=== PATIENT | male | born 1940 | race African-American/Black ===

== ENCOUNTER 2024-04-25 20:21 | Inpatient (IN) | payer OTHER ==
[~2024-04-25] VITALS: Ht 180.3 cm; Wt 84.4 kg
[2024-04-25] MEDS: PIPERACILLIN/TAZO 3.375G/50ML 50 ML IV ONE (22:22)
[2024-04-25] MEDS: FUROSEMIDE 40MG/4ML VIAL IV ONE (22:22)
[2024-04-25] MEDS: ASPIRIN 81MG TABLET PO ONE (22:22)
[2024-04-25] MEDS: VANCOMYCIN 1G PREMIX 200 ML IV ONE (23:09)
[2024-04-26 01:26] LABS: HEMATOCRIT. 33.6 % (42.0-52.0); HEMOGLOBIN. 10.4 g/dL (14.0-18.0); MEAN CORPUSCULAR HEMOGLOBIN 26.6 pg (28.0-32.0); MEAN CORPUSCULAR HGB CONC 30.8 g/dL (31.0-37.0); MEAN CORPUSCULAR VOLUME 86.6 fL (80.0-94.0); MEAN PLATELET VOLUME 10.8 fl (7.4-10.4); PLATELET 146 x1000/uL (130-400); RED BLOOD CELL COUNT 3.89 mill/uL (4.7-6.1); RED CELL DISTRIBUTION WIDTH 17.2 % (11.6-14.6); WHITE BLOOD COUNT 30.3 x1000/uL (4.5-11.0)
[2024-04-26 01:27] LABS: DIFFERENTIAL COMMENT 1
[2024-04-26 01:31] LABS: CHLORIDE 104 mEq/L (98-107); POTASSIUM 4.8 mEq/L (3.5-5.1); SODIUM 138 mEq/L (136-145)
[2024-04-26 01:32] LABS: CALCIUM 9.3 mg/dL (8.7-10.4); CARBON DIOXIDE 25 mEq/L (21-32)
[2024-04-26 01:37] LABS: CREATININE 3.7 mg/dL (0.6-1.3); GLUCOSE 154 mg/dL (70-105); UREA NITROGEN BLOOD 42 mg/dL (9-23)
[2024-04-26 01:39] LABS: ALANINE AMINOTRANSFERASE 27 IU/L (10-49); ALBUMIN 3.9 g/dL (3.2-4.8); ASPARTATE AMINOTRANSFERASE 14 IU/L (<34); BILIRUBIN DIRECT 0.2 mg/dL (<=3.0); BILIRUBIN TOTAL 0.6 mg/dL (0.1-1.0); PROTEIN TOTAL 6.3 g/dL (6.0-8.3)
[2024-04-26 01:51] LABS: PLATELET ESTIMATE NORMAL
[2024-04-26 02:03] LABS: INR 1.1; PARTIAL THROMBOPLASTIN TIME 29.1 sec (23.4-31.0); PROTHROMBIN TIME 11.9 sec (9.6-11.0)
[2024-04-26 02:13] LABS: TROPONIN I HIGH SENSITIVITY 123 ng/L (3.0-53)
[2024-04-26] MEDS: IPRATROPIUM/ALBUTEROL 0.5-3(2.5)MG/3ML NEB HHN SCH (02:45)
[2024-04-26] MEDS ORDERED: DOCUSATE SODIUM 100MG CAPSULE PO PRN (05:45)
[2024-04-26] MEDS ORDERED: IPRATROPIUM/ALBUTEROL 0.5-3(2.5)MG/3ML NEB HHN PRN (05:45)
[2024-04-26] MEDS ORDERED: HYDRALAZINE 20MG/ML VIAL IV PRN (05:45)
[2024-04-26] MEDS ORDERED: FUROSEMIDE 20MG/2ML VIAL IVP SCH (05:45)
[2024-04-26] MEDS ORDERED: GUAIFENESIN 200MG/10ML SUGAR FREE UDC PO PRN (05:45)
[2024-04-26] MEDS ORDERED: ACETAMINOPHEN 325MG TABLET PO PRN ×2 (05:45)
[2024-04-26] MEDS ORDERED: ONDANSETRON HCL 4MG/2ML INJ IV PRN (05:45)
[2024-04-26] MEDS: CEFTRIAXONE 1GM/50ML 50 ML IV SCH (06:47)
[2024-04-26 08:38] LABS: HEMATOCRIT. 33.3 % (42.0-52.0); HEMOGLOBIN. 10.3 g/dL (14.0-18.0); MEAN CORPUSCULAR HEMOGLOBIN 26.6 pg (28.0-32.0); MEAN CORPUSCULAR HGB CONC 30.8 g/dL (31.0-37.0); MEAN CORPUSCULAR VOLUME 86.5 fL (80.0-94.0); PLATELET 153 x1000/uL (130-400); RED BLOOD CELL COUNT 3.85 mill/uL (4.7-6.1); RED CELL DISTRIBUTION WIDTH 17.3 % (11.6-14.6)
[2024-04-26 08:47] LABS: DIFFERENTIAL COMMENT 1
[2024-04-26 08:48] LABS: TRIGLYCERIDE 55 mg/dL (0-150)
[2024-04-26 08:49] LABS: LDL CHOLESTEROL 27 mg/dL (5-100)
[2024-04-26 08:50] LABS: ALANINE AMINOTRANSFERASE 23 IU/L (10-49); ALBUMIN 3.8 g/dL (3.2-4.8); ASPARTATE AMINOTRANSFERASE 11 IU/L (<34); BILIRUBIN DIRECT 0.3 mg/dL (<=3.0); BILIRUBIN TOTAL 0.7 mg/dL (0.1-1.0); CHOLESTEROL 92 mg/dL (<200); HDL CHOLESTEROL 45 mg/dL (>55); PHOSPHORUS 5.2 mg/dL (2.5-4.9)
[2024-04-26 08:51] LABS: PROTEIN TOTAL 6.1 g/dL (6.0-8.3)
[2024-04-26 08:54] LABS: THYROID STIMULATING HORMONE 0.66 uIU/mL (0.55-4.78)
[2024-04-26] MEDS: ASPIRIN 81MG TABLET PO SCH (09:23)
[2024-04-26] MEDS: ENOXAPARIN 30MG/0.3ML SYR SUBCUT SCH (09:23)
[2024-04-26] MEDS: FUROSEMIDE 40MG/4ML VIAL IVP SCH (09:23)
[2024-04-26] MEDS: DOXYCYCLINE 100MG/100ML 100 ML IV SCH ×2 (09:23→22:15)
[2024-04-26 09:44] LABS: ANISOCYTOSIS 2+; PLATELET ESTIMATE NORMAL
[2024-04-26 09:47] LABS: TOXIC VACUOLATION FEW
[2024-04-26 15:14] VITALS: PULSE 74; RESP 18; O2SAT 95
[2024-04-26 16:00] VITALS: BP 124/74; PULSE 74; RESP 18; TEMP 36.72516; O2SAT 97
[2024-04-26 20:00] VITALS: BP_SYST 138; BP_SYST 149; BP_DIAS 54; BP_DIAS 58; PULSE 74; RESP 18; TEMP 36.50292; TEMP 36.61404; O2SAT 98
[2024-04-26] MEDS ORDERED: ATORVASTATIN CALCIUM 20MG TABLET PO SCH (21:00)
[2024-04-26] MEDS: ATORVASTATIN CALCIUM 40MG TABLET PO SCH (21:56)
[2024-04-26] MEDS: FAMOTIDINE 20MG TABLET PO SCH (21:57)
[2024-04-27] VITALS (9 sets, daily range): BP systolic 124–147; BP diastolic 48–62; PULSE 62–84; RESP 16–20; TEMP 36.16956–37.05852; O2SAT 97–100
[2024-04-27 07:46] LABS: HEMATOCRIT. 31.8 % (42.0-52.0); MEAN CORPUSCULAR HEMOGLOBIN 27.4 pg (28.0-32.0); MEAN CORPUSCULAR HGB CONC 31.4 g/dL (31.0-37.0); MEAN CORPUSCULAR VOLUME 87.5 fL (80.0-94.0); MEAN PLATELET VOLUME 10.4 fl (7.4-10.4); PLATELET 131 x1000/uL (130-400); RED BLOOD CELL COUNT 3.63 mill/uL (4.7-6.1); RED CELL DISTRIBUTION WIDTH 17.3 % (11.6-14.6); WHITE BLOOD COUNT 23.4 x1000/uL (4.5-11.0)
[2024-04-27 07:49] LABS: POTASSIUM 5.4 mEq/L (3.5-5.1)
[2024-04-27 07:55] LABS: CREATININE 3.5 mg/dL (0.6-1.3)
[2024-04-27 08:19] LABS: DIFFERENTIAL COMMENT 1
[2024-04-27] MEDS: SODIUM ZIRCONIUM CYCLOSILICATE 10GM/PACKET PO NR (10:33)
[2024-04-27] MEDS ORDERED: CEFEPIME 1GM IN DEXT 5% 50ML IV SCH (13:15)
[2024-04-27] MEDS: CEFEPIME 1GM/50ML 50 ML IV SCH (15:00)
[2024-04-27 16:28] LABS: ANISOCYTOSIS 1+; PLATELET ESTIMATE SLIGHTLY DECREASED
[2024-04-27 16:29] LABS: GIANT PLATELETS 1+
[2024-04-28] VITALS (10 sets, daily range): BP systolic 132–149; BP diastolic 55–66; PULSE 62–76; RESP 16–20; TEMP 36.50292–37.05852; O2SAT 97–100
[2024-04-28] MEDS: DOXYCYCLINE HYCLATE 100MG CAPSULE PO SCH (08:23)
[2024-04-28] MEDS: CEFEPIME 1GM/50ML 50 ML IV SCH (08:24)
[2024-04-28 11:00] LABS: BASOPHILS % 0.5 % (0.0-2.0); EOSINOPHILS % 2.3 % (0.0-5.0); HEMATOCRIT. 31.7 % (42.0-52.0); HEMOGLOBIN. 9.9 g/dL (14.0-18.0); LYMPHOCYTES % 7.2 % (20.0-50.0); MEAN CORPUSCULAR HEMOGLOBIN 27.3 pg (28.0-32.0); MEAN CORPUSCULAR HGB CONC 31.2 g/dL (31.0-37.0); MEAN CORPUSCULAR VOLUME 87.5 fL (80.0-94.0); MEAN PLATELET VOLUME 10.5 fl (7.4-10.4); MONOCYTES % 7.3 % (2.0-8.0); NEUTROPHILS % 82.7 % (40.0-76.0); PLATELET 128 x1000/uL (130-400); RED BLOOD CELL COUNT 3.62 mill/uL (4.7-6.1); RED CELL DISTRIBUTION WIDTH 16.6 % (11.6-14.6)
[2024-04-28 11:05] LABS: CARBON DIOXIDE 25 mEq/L (21-32); CHLORIDE 104 mEq/L (98-107); POTASSIUM 4.5 mEq/L (3.5-5.1); SODIUM 140 mEq/L (136-145)
[2024-04-28 11:06] LABS: CALCIUM 9.2 mg/dL (8.7-10.4)
[2024-04-28 11:10] LABS: CREATININE 3.1 mg/dL (0.6-1.3); GLUCOSE 161 mg/dL (70-105)
[2024-04-28 11:11] LABS: UREA NITROGEN BLOOD 53 mg/dL (9-23)
[2024-04-29] VITALS: BP 132/76; PULSE 62; TEMP 36.114; O2SAT 99
[2024-04-29 04:00] VITALS: BP 136/45; PULSE 69; TEMP 36.3918; O2SAT 100
[2024-04-29 08:00] VITALS: BP 137/50; PULSE 85; RESP 18; TEMP 36.89184; O2SAT 100
[2024-04-29] MEDS: CEFEPIME 2GM/50ML DUPLEX 50 ML IV SCH (08:20)
[2024-04-29 08:21] LABS: CHLORIDE 107 mEq/L (98-107); POTASSIUM 5.1 mEq/L (3.5-5.1); SODIUM 141 mEq/L (136-145)
[2024-04-29 08:22] LABS: CALCIUM 8.8 mg/dL (8.7-10.4); CARBON DIOXIDE 25 mEq/L (21-32)
[2024-04-29 08:27] LABS: CREATININE 2.8 mg/dL (0.6-1.3); GLUCOSE 81 mg/dL (70-105); UREA NITROGEN BLOOD 51 mg/dL (9-23)
[2024-04-29 08:29] LABS: BASOPHILS % 0.4 % (0.0-2.0); EOSINOPHILS % 2.9 % (0.0-5.0); HEMATOCRIT. 31.5 % (42.0-52.0); HEMOGLOBIN. 9.8 g/dL (14.0-18.0); LYMPHOCYTES % 10.5 % (20.0-50.0); MEAN CORPUSCULAR HEMOGLOBIN 27.4 pg (28.0-32.0); MEAN CORPUSCULAR HGB CONC 31.2 g/dL (31.0-37.0); MEAN CORPUSCULAR VOLUME 87.9 fL (80.0-94.0); MEAN PLATELET VOLUME 11.1 fl (7.4-10.4); MONOCYTES % 10.9 % (2.0-8.0); NEUTROPHILS % 75.3 % (40.0-76.0); PHOSPHORUS 4.6 mg/dL (2.5-4.9); PLATELET 132 x1000/uL (130-400); RED BLOOD CELL COUNT 3.58 mill/uL (4.7-6.1); RED CELL DISTRIBUTION WIDTH 16.6 % (11.6-14.6); WHITE BLOOD COUNT 8.1 x1000/uL (4.5-11.0)
[2024-04-29 12:00] VITALS: BP 149/52; PULSE 67; RESP 20; TEMP 36.89184; O2SAT 93
[2024-04-29 12:34] VITALS: BP 149/52; PULSE 67; TEMP 98.4; O2SAT 93
[2024-04-29] MEDS ORDERED: DOXY100C5 MT (13:03)
== END 2024-04-29 18:06 | disposition home or self-care (01) | DRG 871 ==
LOC: ER 20:21 → 5WST 04-26 02:37 → EDBEDREQTM 04-26 02:40 → EDBEDREQ 04-26 02:40 → 8WST 04-28 00:11
PROVIDERS: ADMIT Hospitalist; ATTEND Hospitalist
DX: A41.9 Sepsis, unspecified organism (principal); I21.A1 Myocardial infarction type 2; J18.9 Pneumonia, unspecified organism; I13.0 Hypertensive heart and chronic kidney disease with heart failure and stage 1 through stage 4 chronic kidney disease, or unspecified chronic kidney disease; J44.0 Chronic obstructive pulmonary disease with (acute) lower respiratory infection; N17.9 Acute kidney failure, unspecified; N18.4 Chronic kidney disease, stage 4 (severe); I44.7 Left bundle-branch block, unspecified; I49.1 Atrial premature depolarization; K80.20 Calculus of gallbladder without cholecystitis without obstruction; R73.9 Hyperglycemia, unspecified; D64.9 Anemia, unspecified; Z85.118 Personal history of other malignant neoplasm of bronchus and lung; Z85.72 Personal history of non-Hodgkin lymphomas; Z86.711 Personal history of pulmonary embolism; Z87.01 Personal history of pneumonia (recurrent); Z92.21 Personal history of antineoplastic chemotherapy; I50.9 Heart failure, unspecified; N42.9 Disorder of prostate, unspecified; Z79.82 Long term (current) use of aspirin; Z79.899 Other long term (current) drug therapy
CPT/HCPCS: 36415; 71045; 71250; 76770; 80048; 80061; 80076; 80307; 83036; 83605; 83735; 83880; 84100; 84145; 84443; 84484; 85025; 85379; 93005; 93306; 93970; 94070; 94640; 94760; 99285; A4606; A4663; J0692; J0696; J1650; J1940; J2543; J3370; J3490

== ENCOUNTER 2024-08-11 23:59 | Inpatient (IN) | payer OTHER, MEDICARE ==
[~2024-08-11] VITALS: Ht 170.2 cm; Wt 83.5 kg
[~2024-08-11 23:59] MED LIST: DOXY100C5 MT
[2024-08-12] VITALS (7 sets, daily range): BP systolic 124–156; BP diastolic 56–66; PULSE 66–86; RESP 15–18; TEMP 36.5–37.1; O2SAT 93–95
[2024-08-12 01:45] LABS: BASOPHILS % 0.6 % (0.0-2.0); HEMATOCRIT. 29.8 % (42.0-52.0); HEMOGLOBIN. 9.5 g/dL (14.0-18.0); LYMPHOCYTES % 7.2 % (20.0-50.0); MEAN CORPUSCULAR HEMOGLOBIN 26.8 pg (28.0-32.0); MEAN CORPUSCULAR HGB CONC 31.8 g/dL (31.0-37.0); MEAN CORPUSCULAR VOLUME 84.3 fL (80.0-94.0); MONOCYTES % 3.7 % (2.0-8.0); NEUTROPHILS % 88.5 % (40.0-76.0); PLATELET 150 x1000/uL (130-400); RED BLOOD CELL COUNT 3.53 mill/uL (4.7-6.1); WHITE BLOOD COUNT 9.1 x1000/uL (4.5-11.0)
[2024-08-12 02:00] LABS: CARBON DIOXIDE 28 mEq/L (21-32); CHLORIDE 106 mEq/L (98-107); POTASSIUM 5.2 mEq/L (3.5-5.1); SODIUM 141 mEq/L (136-145)
[2024-08-12 02:01] LABS: CALCIUM 8.8 mg/dL (8.7-10.4)
[2024-08-12 02:05] LABS: CREATININE 3.6 mg/dL (0.6-1.3); GLUCOSE 226 mg/dL (70-105)
[2024-08-12 02:06] LABS: TROPONIN I HIGH SENSITIVITY 26 ng/L (3.0-53); UREA NITROGEN BLOOD 100 mg/dL (9-23)
[2024-08-12 02:07] LABS: ALANINE AMINOTRANSFERASE 44 IU/L (10-49); ALBUMIN 3.9 g/dL (3.2-4.8); ASPARTATE AMINOTRANSFERASE 19 IU/L (<34)
[2024-08-12 02:08] LABS: BILIRUBIN TOTAL 0.3 mg/dL (0.1-1.0); PROTEIN TOTAL 6.9 g/dL (6.0-8.3)
[2024-08-12] MEDS ORDERED: FINA5TAB11 PO (08:41)
[2024-08-12] MEDS ORDERED: TERA10CA4 PO (08:41)
[2024-08-12] MEDS ORDERED: AMLO10TA80 PO (08:41)
[2024-08-12] MEDS ORDERED: METO25TA6 PO (08:41)
[2024-08-12] MEDS ORDERED: ALLO100T PO (08:41)
[2024-08-12] MEDS ORDERED: HYDR100T31 PO (08:41)
[2024-08-12] MEDS ORDERED: LISI20TA31 PO (08:41)
[2024-08-12] MEDS ORDERED: SODIUM POLYSTYRENE SULFONATE 15 G/60 ML BOT PO ONE (08:45)
[2024-08-12] MEDS ORDERED: IPRATROPIUM/ALBUTEROL 0.5-3(2.5)MG/3ML NEB HHN PRN (08:45)
[2024-08-12] MEDS ORDERED: DEXTROSE 50% WATER 50ML SYRINGE IV PRN ×3 (08:45→09:15)
[2024-08-12] MEDS ORDERED: ACETAMINOPHEN 325MG TABLET PO PRN ×2 (08:45→09:00)
[2024-08-12] MEDS ORDERED: ONDANSETRON HCL 4MG/2ML INJ IV PRN (08:45)
[2024-08-12] MEDS: FUROSEMIDE 40MG/4ML VIAL IVP SCH ×2 (09:07→17:14)
[2024-08-12] MEDS: ALLOPURINOL 100 MG TABLET PO SCH (09:08)
[2024-08-12] MEDS: AMLODIPINE 10MG TABLET PO SCH (09:08)
[2024-08-12] MEDS: ENOXAPARIN 30MG/0.3ML SYR SUBCUT SCH (09:08)
[2024-08-12] MEDS: PANTOPRAZOLE SODIUM 40 MG/VIAL IV SCH (09:08)
[2024-08-12] MEDS: SODIUM ZIRCONIUM CYCLOSILICATE 10GM/PACKET PO NR (09:09)
[2024-08-12] MEDS: FINASTERIDE 5MG TABLET PO SCH (09:09)
[2024-08-12] MEDS: HYDRALAZINE HCL 100MG TABLET PO SCH (09:13)
[2024-08-12] MEDS: TERAZOSIN HCL 5MG CAPSULE PO SCH (09:14)
[2024-08-12] MEDS: LISINOPRIL 20MG TABLET PO SCH (09:15)
[2024-08-12] MEDS: METOPROLOL TARTRATE 25MG TABLET PO SCH (09:15)
[2024-08-12] MEDS: BUDESONIDE 0.5MG/2ML NEB HHN SCH (09:53)
[2024-08-12] MEDS: IPRATROPIUM/ALBUTEROL 0.5-3(2.5)MG/3ML NEB HHN SCH (09:57)
[2024-08-12] MEDS: BLOOD SUGAR DIAGNOSTIC STRIP TEST SCH (11:24)
[2024-08-12 11:26] LABS: CLARITY URINE CLEAR (CLEAR); COLOR URINE YELLOW (YELLOW); GLUCOSE URINE NEGATIVE (NEGATIVE); KETONES URINE NEGATIVE (NEGATIVE); LEUKOCYTE ESTERASE URINE 1+ (NEGATIVE); NITRITE URINE NEGATIVE (NEGATIVE); OCCULT BLOOD URINE NEGATIVE (NEGATIVE); PH URINE 5.5 (4.5-8.0); PROTEIN URINE 1+ (NEGATIVE); SPECIFIC GRAVITY URINE 1.013 (1.005-1.030); UROBILINOGEN URINE 0.2 E.U./dL (0.2-1.0)
[2024-08-12 11:36] LABS: BACTERIA URINE NONE SEEN; RBC URINE 0-2 /hpf (0-2); SQUAMOUS EPITHELIAL CELL URINE 1+ /lpf (RARE/1+); YEAST URINE NONE SEEN
[2024-08-12] MEDS ORDERED: BLOOD SUGAR DIAGNOSTIC STRIP TEST SCH ×2 (11:45)
[2024-08-12] MEDS: INSULIN LISPRO 100 UNITS/ML SUBCUT SCH (11:55)
[2024-08-12 18:10] LABS: TROPONIN I HIGH SENSITIVITY 38 ng/L (3.0-53)
[2024-08-12] MEDS: ATORVASTATIN CALCIUM 40MG TABLET PO SCH (22:08)
[2024-08-12 22:46] LABS: TROPONIN I HIGH SENSITIVITY 38 ng/L (3.0-53)
[2024-08-13] VITALS (12 sets, daily range): BP systolic 111–158; BP diastolic 42–77; PULSE 61–84; RESP 12–22; TEMP 36.4–36.9; O2SAT 94–99
[2024-08-13 02:47] LABS: TROPONIN I HIGH SENSITIVITY 34 ng/L (3.0-53)
[2024-08-13] MEDS ORDERED: FUROSEMIDE 40MG/4ML VIAL IVP SCH (09:00)
[2024-08-13] MEDS ORDERED: FUROSEMIDE 40MG TABLET PO SCH (09:00)
[2024-08-13 11:29] LABS: BASOPHILS % 0.5 % (0.0-2.0); HEMATOCRIT. 30.9 % (42.0-52.0); HEMOGLOBIN. 9.5 g/dL (14.0-18.0); LYMPHOCYTES % 12.4 % (20.0-50.0); MEAN CORPUSCULAR HEMOGLOBIN 26.1 pg (28.0-32.0); MEAN CORPUSCULAR HGB CONC 30.7 g/dL (31.0-37.0); MEAN CORPUSCULAR VOLUME 85.1 fL (80.0-94.0); MEAN PLATELET VOLUME 10.5 fl (7.4-10.4); MONOCYTES % 13.4 % (2.0-8.0); NEUTROPHILS % 70.7 % (40.0-76.0); PLATELET 128 x1000/uL (130-400); RED BLOOD CELL COUNT 3.63 mill/uL (4.7-6.1); RED CELL DISTRIBUTION WIDTH 15.7 % (11.6-14.6); WHITE BLOOD COUNT 7.7 x1000/uL (4.5-11.0)
[2024-08-13 11:40] LABS: POTASSIUM 4.9 mEq/L (3.5-5.1)
[2024-08-13 11:41] LABS: CALCIUM 9.2 mg/dL (8.7-10.4)
[2024-08-13 11:46] LABS: CREATININE 2.9 mg/dL (0.6-1.3)
[2024-08-13 17:55] LABS: BG BASE EXCESS 2.4 mmol/L (-2.0-3.0); BG CARBOXYHEMOGLOBIN 1.2 % (0.5-1.5); BG FRACTION INSPIRED OXYGEN 21; BG HCO3 ACT 26.4 mmol/L (21.0-28.0); BG METHEMOGLOBIN 0.3 % (0.5-1.5); BG OXYGEN SATURATION 85.8 % (94.0-98.0); BG OXYHEMOGLOBIN 84.5 % (94.0-98.0); BG PCO2 38.4 mmHg (35.0-48.0); BG PH 7.455 (7.350-7.450); BG PO2 48.2 mmHg (83.0-108.0); BG SAMPLE SITE LEFT RADIAL; BG VENT MODE ROOM AIR
[2024-08-14] VITALS (11 sets, daily range): BP systolic 108–141; BP diastolic 53–62; PULSE 63–80; RESP 16–18; TEMP 36.1–36.8; O2SAT 95–100
[2024-08-14 07:06] LABS: BASOPHILS % 0.2 % (0.0-2.0); EOSINOPHILS % 3.6 % (0.0-5.0); HEMATOCRIT. 30.8 % (42.0-52.0); HEMOGLOBIN. 9.6 g/dL (14.0-18.0); LYMPHOCYTES % 15.7 % (20.0-50.0); MEAN CORPUSCULAR HEMOGLOBIN 26.4 pg (28.0-32.0); MEAN CORPUSCULAR HGB CONC 31.2 g/dL (31.0-37.0); MEAN CORPUSCULAR VOLUME 84.4 fL (80.0-94.0); MEAN PLATELET VOLUME 11.1 fl (7.4-10.4); MONOCYTES % 11.4 % (2.0-8.0); NEUTROPHILS % 69.1 % (40.0-76.0); PLATELET 128 x1000/uL (130-400); RED BLOOD CELL COUNT 3.65 mill/uL (4.7-6.1); RED CELL DISTRIBUTION WIDTH 15.8 % (11.6-14.6); WHITE BLOOD COUNT 7.7 x1000/uL (4.5-11.0)
[2024-08-14 07:19] LABS: POTASSIUM 5.4 mEq/L (3.5-5.1)
[2024-08-14 07:21] LABS: CALCIUM 9.8 mg/dL (8.7-10.4)
[2024-08-14 07:26] LABS: CREATININE 2.5 mg/dL (0.6-1.3)
[2024-08-14] MEDS: SODIUM ZIRCONIUM CYCLOSILICATE 10GM/PACKET PO NR (10:59)
== END 2024-08-14 18:11 | disposition home or self-care (01) | DRG 291 ==
LOC: ER 23:59 → 5WST 08-12 05:12 → 7EST 08-14 12:12
PROVIDERS: ADMIT Internal Medicine; ATTEND Internal Medicine
DX: I13.2 Hypertensive heart and chronic kidney disease with heart failure and with stage 5 chronic kidney disease, or end stage renal disease (principal); I50.23 Acute on chronic systolic (congestive) heart failure; J96.21 Acute and chronic respiratory failure with hypoxia; N18.5 Chronic kidney disease, stage 5; Z20.822 Contact with and (suspected) exposure to COVID-19; D64.9 Anemia, unspecified; E11.22 Type 2 diabetes mellitus with diabetic chronic kidney disease; E87.5 Hyperkalemia; I44.7 Left bundle-branch block, unspecified; J44.9 Chronic obstructive pulmonary disease, unspecified; Z79.899 Other long term (current) drug therapy; Z85.118 Personal history of other malignant neoplasm of bronchus and lung; Z86.16 Personal history of COVID-19; Z87.01 Personal history of pneumonia (recurrent); Z88.0 Allergy status to penicillin; Z90.2 Acquired absence of lung [part of]; Z92.21 Personal history of antineoplastic chemotherapy; Z99.81 Dependence on supplemental oxygen
CPT/HCPCS: 36415; 36600; 80048; 80053; 81003; 82375; 82805; 82962; 83036; 83880; 84484; 85025; 87426; 93005; 94070; 94640; 94664; 97116; 97162; 99285; J1650; J1815; J1940; J2470; J7626